=== PATIENT | male | born 1995 | race Caucasian/White ===

== ENCOUNTER 2019-11-13 10:44 | Emergency (ER) | payer SELFPAY ==
[~2019-11-13] VITALS: Ht 165.1 cm; Wt 60.0 kg
[2019-11-13 11:52] LABS: BASOPHILS % 0.7 % (0.0-2.0); EOSINOPHILS % 0.6 % (0.0-5.0); HEMATOCRIT. 45.8 % (42.0-52.0); HEMOGLOBIN. 16.2 g/dL (14.0-18.0); LYMPHOCYTES % 29.8 % (20.0-50.0); MEAN CORPUSCULAR HEMOGLOBIN 30.9 pg (28.0-32.0); MEAN CORPUSCULAR VOLUME 87.6 fL (80.0-94.0); MEAN PLATELET VOLUME 8.1 fl (7.4-10.4); MONOCYTES % 8.3 % (2.0-8.0); NEUTROPHILS % 60.6 % (40.0-76.0); PLATELET 263 x1000/uL (130-400); RED BLOOD CELL COUNT 5.24 mill/uL (4.7-6.1); RED CELL DISTRIBUTION WIDTH 12.5 % (11.6-14.6)
[2019-11-13] MEDS ORDERED: ALPRAZOLAM 0.5 MG TABLET PO SCH (12:00)
[2019-11-13 12:01] LABS: CHLORIDE 107 mEq/L (98-107)
[2019-11-13 13:14] VITALS: BP 116/66
== END 2019-11-13 13:20 | disposition home or self-care (01) ==
LOC: ER 11:12
DX: F41.9 Anxiety disorder, unspecified (principal)
CPT/HCPCS: 36415; 80048; 85025; 93005; 99284